=== PATIENT | female | born 1995 | race Caucasian/White ===

== ENCOUNTER 2017-07-16 20:33 | Observation (INO) | payer OTHER ==
--- NOTE | 2017-07-16 23:34 | ED ---
Abdominal Pain HPI - General Chief Complaint: Abdominal Pain Stated Complaint: appendicitis Time Seen by Provider: 07/16/17 21:29 Source: patient, RN notes reviewed Mode of arrival: ambulatory Limitations: no limitations - History of Present Illness Initial Comments: This is a 22-year-old female who had a about one week ago at [facility] who started developing abdominal pain yesterday he got worse this morning. She was seen at [facility] the workup including CAT scan wishes show evidence of a retrocecal appendicitis. Patient was transferred here as no surgeries for available at either [facility] or [place]. He currently has minimal pain she states it started in the mid abdominal area no overt fevers chills sweats at this time. No nausea reported at this time. MD Complaint: abdominal pain - Related Data Home Medications Medication Instructions Recorded Confirmed Ibuprofen [Motrin Ib] 200 mg PO Q6HR PRN 07/16/17 07/16/17 [place] Unknown Dose 1 tab PO BID PRN 07/16/17 07/16/17 Allergies Allergy/AdvReac Type Severity Reaction Status Date / Time No Known Allergies Allergy Verified 07/16/17 20:40 Review of Systems ROS Statement: Those systems with pertinent positive or pertinent negative responses have been documented in the HPI. ROS Other: All systems not noted in ROS Statement are negative. Past Medical History Past Medical History: No Reported History History of Any Multi-Drug Resistant Organisms: None Reported Past Surgical History: Section Past Psychological History: No Psychological Hx Reported Smoking Status: Current every day smoker Past Alcohol Use History: None Reported Past Drug Use History: None Reported General Exam - General Exam Comments Initial Comments: This is a well-developed well-nourished awake alert oriented 3 female Limitations: no limitations General appearance: alert, in no apparent distress Head exam: Present: atraumatic, normocephalic, normal inspection Eye exam: Present: normal appearance, PERRL, EOMI. Absent: scleral icterus, conjunctival injection, periorbital swelling ENT exam: Present: normal exam, mucous membranes moist Neck exam: Present: normal inspection. Absent: tenderness, meningismus, lymphadenopathy Respiratory exam: Present: normal lung sounds bilaterally. Absent: respiratory distress, wheezes, rales, rhonchi, stridor Cardiovascular Exam: Present: regular rate, normal rhythm, normal heart sounds. Absent: systolic murmur, diastolic murmur, rubs, gallop, clicks GI/Abdominal exam: Present: soft, tenderness (Mild tenderness palpation guarding rebound the surgical incision has Steri-Strips appears be intact with no evidence of wound dehiscence.) Extremities exam: Present: normal inspection, full ROM, normal capillary refill. Absent: tenderness, pedal edema, joint swelling, calf tenderness Back exam: Present: normal inspection Neurological exam: Present: alert, oriented X3, CN II-XII intact Psychiatric exam: Present: normal affect, normal mood Skin exam: Present: warm, dry, intact, normal color. Absent: rash Course Vital Signs 07/16/17 07/16/17 07/16/17 20:36 21:32 21:46 Temperature 98.3 F Pulse Rate 81 67 67 Respiratory 18 18 18 Rate Blood Pressure 136/78 121/65 116/57 O2 Sat by Pulse 96 97 98 Oximetry 07/16/17 23:07 Temperature Pulse Rate 67 Respiratory 18 Rate Blood Pressure 114/53 O2 Sat by Pulse 100 Oximetry Medical Decision Making - Medical Decision Making I did review the imaging as well as the materials presented from the sending facility patient did have evidence of a 19,000 white count she did receive IV antibiotics. I did discuss the case with Dr Dang. The patient will be admitted with surgery in the early a.m. Remain nothing by mouth except for a sip of water prior to admission. Disposition Clinical Impression: Appendicitis Disposition: ADMITTED IP TO THIS [facility] Condition: Stable Referrals: Gema Valencia MD [Primary Care Provider] - 1-2 days
[2017-07-16] MEDS ORDERED: ONDANSETRON 4 MG/2 ML VIAL IVP PRN (23:35)
[2017-07-16] MEDS ORDERED: NALOXONE 0.4 MG/ML 1 ML VIAL IV PRN (23:35)
[2017-07-16] MEDS: SODIUM CHLORIDE 0.9% 1,000 ML IV SCH (23:59)
[2017-07-16] MEDS: MORPHINE SULFATE 4 MG/ML SYRINGE IVP PRN (23:59)
[2017-07-17 01:12] VITALS: BMI 47.5
[2017-07-17] MEDS: PIPERACILLIN-TAZOBACTAM 3.375 GM in DEXTROSE/WATER 1 50ML.BAG IVPB SCH ×2 (04:57→15:56)
[2017-07-17] MEDS: SODIUM CHLORIDE 0.9% 1,000 ML IV SCH ×2 (06:56→17:20)
[2017-07-17] MEDS ORDERED: HEPARIN SODIUM,PORCINE 5,000 UNIT/ML 1 ML VIAL SQ STA (08:18)
--- NOTE | 2017-07-17 08:18 | P.GSHP ---
History of Present Illness H&P Date: 07/17/17 Chief Complaint: Acute appendicitis Patient transfer from [facility] yesterday evening with acute appendicitis. She said she began experiencing abdominal pain that began 2 days ago. He was initially in the periumbilical region but has moved to the right lower quadrant. White blood cell count was elevated at 19,000. She had episodes of nausea and vomiting. Some anorexia. No fevers. CAT scan showed acute appendicitis possibly retrocecal. Patient just had a performed 2 weeks ago. - Review of Systems Comment: The patient denies any acute changes in vision or hearing, no dysphagia or odynophagia, no chest pain or shortness of breath, no dysuria or hematuria, no headache, no runny nose, no rectal bleeding or melena, no unexplained weight loss Past Medical History Past Medical History: No Reported History History of Any Multi-Drug Resistant Organisms: None Reported Past Surgical History: Section Additional Past Surgical History / Comment(s): c section x4 Past Psychological History: No Psychological Hx Reported Smoking Status: Current some day smoker Past Alcohol Use History: None Reported Past Drug Use History: None Reported - Past Family History Mother Family Medical History: COPD Father Family Medical History: Diabetes Mellitus Medications and Allergies Home Medications Medication Instructions Recorded Confirmed Type Ibuprofen [Motrin Ib] 200 mg PO Q6HR PRN 07/16/17 07/16/17 History [place] Unknown Dose 1 tab PO BID PRN 07/16/17 07/16/17 History Allergies Allergy/AdvReac Type Severity Reaction Status Date / Time No Known Allergies Allergy Verified 07/17/17 08:07 Surgical - Exam Vital Signs Temp Pulse Resp BP Pulse Ox 98.3 F 81 18 136/78 96 07/16/17 20:36 07/16/17 20:36 07/16/17 20:36 07/16/17 20:36 07/16/17 20:36 Physical exam: General: Well-developed, well-nourished HEENT: Normocephalic, sclerae nonicteric Abdomen: Moderate right lower quadrant tenderness, recent scar noted Extremities: No edema Neuro: Alert and oriented Assessment and Plan (1) Appendicitis Narrative/Plan: Clinical scenario was discussed in detail with the patient and her family. We' ll plan laparoscopic possible open appendectomy at this time. Risks of bleeding , infection, abscess, ureteral injury, conversion to open, hernia were discussed. She understands and wishes to proceed. Current Visit: Yes Status: Acute Code(s): K37 - UNSPECIFIED APPENDICITIS SNOMED Code(s): 39506710
[2017-07-17] MEDS ORDERED: BUPIVACAINE (PF) 0.25% 30 ML VIAL SQ ONE ×2 (08:33)
[2017-07-17] MEDS ORDERED: IV FLUID CONTINUATION 800 ML IV ONE (08:35)
[2017-07-17] MEDS ORDERED: MIDAZOLAM 2 MG/2 ML VIAL ONE (08:36)
[2017-07-17] MEDS ORDERED: PROPOFOL 10 MG/ML 20 ML VIAL IV ONE (08:36)
[2017-07-17] MEDS ORDERED: MORPHINE SULFATE 10 MG/ML SYRINGE ONE (08:36)
[2017-07-17] MEDS ORDERED: GLYCOPYRROLATE 0.2 MG/ML 2 ML VIAL ONE (08:36)
[2017-07-17] MEDS ORDERED: ROCURONIUM BROMIDE 10 MG/ML 10 ML VIAL IV ONE (08:36)
[2017-07-17] MEDS ORDERED: LIDOCAINE 1% INJ 10MG/ML (20 ML MDV) ONE (08:36)
[2017-07-17] MEDS ORDERED: fentaNYL (PF) 50 MCG/ML 2 ML AMP ONE (08:36)
[2017-07-17] MEDS ORDERED: HYDROmorphone (PF) 1 MG/ML ONE (08:36)
[2017-07-17] MEDS ORDERED: SUCCINYLCHOLINE CHLORIDE 100 MG/5 ML SYR IV ONE (08:36)
[2017-07-17] MEDS ORDERED: NEOSTIGMINE 1 MG/ML 10 ML VIAL ONE (08:36)
[2017-07-17] MEDS ORDERED: NALOXONE 0.4 MG/ML 1 ML VIAL IV PRN (09:41)
--- NOTE | 2017-07-17 09:45 | P.OP ---
Date of Procedure: 07/17/17 Procedure(s) Performed: PREOPERATIVE DIAGNOSIS: Acute appendicitis POSTOPERATIVE DIAGNOSIS: Same PROCEDURE: Laparoscopic appendectomy SURGEON: [place] EBL: Total ANESTHESIA: General COMPLICATIONS: None OPERATIVE PROCEDURE: The patient was brought and placed on the operating table in the supine position. The patient was placed under general anesthesia. The abdomen was prepped and draped in the usual sterile fashion. A small vertical infraumbilical incision was made. The fascia was retracted anteriorly with Tg forceps. The Veress needle was advanced into the perineal cavity. The saline drop test was normal. Insufflation took place to 15 mmHg. A 5 mm trocar was then placed. The patient had some adhesions at the prior site in the suprapubic location. The patient's appendix was identified in the right upper quadrant just beneath the liver margin. An additional 5 mm trocar was placed in the right lower quadrant and a 12 mm trocar in the right upper quadrant under direct visualization. The patient's cecum was quite mobile and present again in the right upper quadrant. The appendix itself was acutely inflamed. There was no gangrenous changes or perforation seen. A window was created in the mesoappendix and the base of the appendix was divided using a linear blue load stapler. The base of the appendix was then divided using a linear array load stapler. A small area of bleeding was controlled along the staple line using 2 separate clips. No additional bleeding was seen at that point. The appendix was brought out of the peritoneal cavity through the right upper quadrant trocar site using an Endo Catch bag. The fascia at the 12 mm site was closed using a Ronny-More 0 Vicryl stitch. The skin at all 3 sites was closed using 4-0 Monocryl sutures. Steri-Strips and sterile dressings then applied. DISPOSITION: Stable to recovery room
[2017-07-17] MEDS ORDERED: diphenhydrAMINE 50 MG/ML 1 ML VIAL IVP ONE (09:59)
[2017-07-17] MEDS ORDERED: MEPERIDINE 50 MG/ML SYRINGE IVP ONE (10:03)
[2017-07-17] MEDS: MORPHINE SULFATE 4 MG/ML SYRINGE IVP PRN ×4 (13:00→22:39)
[2017-07-17] MEDS ORDERED: ACETAMINOPHEN IV (For NPO) 1,000 MG in EMPTY BAG 1 BAG IVPB ONE (17:15)
[2017-07-17] MEDS: HEPARIN SODIUM,PORCINE 5,000 UNIT/ML 1 ML VIAL SQ SCH (17:21)
[2017-07-17] MEDS: DOCUSATE 100 MG CAP PO SCH (22:40)
[2017-07-18] MEDS: HEPARIN SODIUM,PORCINE 5,000 UNIT/ML 1 ML VIAL SQ SCH ×4 (00:13→23:51)
[2017-07-18] MEDS: PIPERACILLIN-TAZOBACTAM 3.375 GM in DEXTROSE/WATER 1 50ML.BAG IVPB SCH ×4 (00:14→23:51)
[2017-07-18] MEDS: SODIUM CHLORIDE 0.9% 1,000 ML IV SCH ×4 (00:15→23:51)
[2017-07-18] MEDS: MORPHINE SULFATE 4 MG/ML SYRINGE IVP PRN ×3 (02:02→12:27)
[2017-07-18] MEDS: HYDROcodone/APAP 5-325MG 1 EACH TAB PO PRN ×4 (07:58→21:47)
[2017-07-18] MEDS: DOCUSATE 100 MG CAP PO SCH ×2 (07:58→21:31)
[2017-07-18 11:05] LABS: Basophils # (A) 0.1 k/uL (0-0.2); Basophils % (A) 1 %; Eosinophils # (A) 0.2 k/uL (0-0.7); Eosinophils % (A) 2 %; HCT 33.9 % (34.0-46.0); HGB 10.9 gm/dL (11.4-16.0); Lymphocytes # (A) 3.4 k/uL (1.0-4.8); Lymphocytes % (A) 33 %; MCH 25.8 pg (25.0-35.0); MCHC 32.1 g/dL (31.0-37.0); MCV 80.5 fL (80.0-100.0); Mean Platelet Volume 6.5; Monocytes # (A) 0.4 k/uL (0-1.0); Monocytes % (A) 4 %; Neutrophils # (A) 6.2 k/uL (1.3-7.7); Neutrophils % (A) 60 %; Platelet Count 494 k/uL (150-450); RBC 4.21 m/uL (3.80-5.40); RDW 14.1 % (11.5-15.5); WBC 10.4 k/uL (3.8-10.6)
--- NOTE | 2017-07-18 13:04 | P.PN ---
<Neli Dunhamne M - Last Filed: 07/18/17 12:56> Subjective Progress Note Date: 07/18/17 22-year-old female sitting up on the edge of the bed. Patient reports having "unbearable right upper quadrant pain radiates to the back hurts to take a deep breath. Patient report pain medication has not taken control of the pain the pain persist. Patient reports a sensation of nausea. Patient states she did ambulate in the hallway once this morning did pass gas no stool surgical incision sites dry Postop July 17 laparoscopic appendectomy for acute appendicitis Objective - Vital Signs Vital signs: Vital Signs Temp 98.2 F 07/18/17 11:09 Pulse 78 07/18/17 11:09 Resp 18 07/18/17 11:09 BP 108/63 07/18/17 11:09 Pulse Ox 98 07/18/17 11:09 Intake & Output 07/17/17 07/18/17 07/18/17 18:59 06:59 18:59 Intake Total 840 600 200 Output Total 725 Balance 115 600 200 Intake: IV 600 Oral 240 600 200 Output: Urine 720 Estimated Blood Loss 5 Other: # Voids 1 1 - Exam Physical exam 22-year-old female sitting up on the edge the bed reports nausea sensation no appetite with persistent right upper quadrant abdominal pain radiating to the back Lungs adequate air movement on room air sats are 98% no cough noted Heart S1-S2 audible regular Abdomen surgical incision sites dressings dry ice pack in place surgical tenderness appropriate states urinating no difficulty states passing gas no stool nausea sensation no emesis Extremities no edema - Labs CBC & Chem 7: 07/18/17 10:41 Labs: Abnormal Lab Results - Last 24 Hours (Table) 07/18/17 Range/Units 10:41 Hgb 10.9 L (11.4-16.0) gm/dL Hct 33.9 L (34.0-46.0) % Plt Count 494 H (150-450) k/uL Assessment and Plan Assessment: Impression Present on admission right upper quadrant pain suspect due to acute appendicitis Postop laparoscopic appendectomy Present on admission leukocytosis suspect reactive History of 4 recent likely performed 2 weeks prior Morbid obesity BMI 47 Plan Continue postop surgical care Advance diet as tolerated Encourage ambulation Repeat labs in the morning Pain control Further recommendations pending DVT and GI prophylaxis Will start Toradol 30 IV every 6 The above impression and plan of care have been discussed and directed by signing physician. Kelsie Dunham nurse practitioner acting as scribe for signing physician. <Eugeino Dang - Last Filed: 07/18/17 20:30> Objective - Vital Signs Vital signs: Vital Signs Temp 98.0 F 07/18/17 20:19 Pulse 65 07/18/17 20:19 Resp 18 07/18/17 20:19 BP 108/67 07/18/17 20:19 Pulse Ox 91 L 07/18/17 20:19 Intake & Output 07/18/17 07/18/17 07/19/17 06:59 18:59 06:59 Intake Total 600 760 Balance 600 760 Intake: Oral 600 760 Other: # Voids 1 - Labs CBC & Chem 7: 07/18/17 10:41 Labs: Abnormal Lab Results - Last 24 Hours (Table) 07/18/17 Range/Units 10:41 Hgb 10.9 L (11.4-16.0) gm/dL Hct 33.9 L (34.0-46.0) % Plt Count 494 H (150-450) k/uL Assessment and Plan Assessment: As above. Patient's pain is improved after starting Toradol. She thinks she wants to go home tomorrow morning. She is tolerating diet at this time. White blood cell count normal now. We'll repeat labs tomorrow. Anticipate probable discharge tomorrow. (1) Appendicitis Current Visit: Yes Status: Acute Code(s): K37 - UNSPECIFIED APPENDICITIS SNOMED Code(s): 58891840
[2017-07-18] MEDS ORDERED: traMADol 50 MG TAB PO PRN (13:07)
[2017-07-18] MEDS: KETOROLAC 30 MG/ML 1 ML VIAL IVP SCH ×3 (13:34→23:51)
[2017-07-18] MEDS ORDERED: MORPHINE ORAL SOLN 10 MG/5 ML CUP PO PRN (15:42)
[2017-07-19] MEDS: KETOROLAC 30 MG/ML 1 ML VIAL IVP SCH ×2 (05:46→12:16)
[2017-07-19] MEDS: HYDROcodone/APAP 5-325MG 1 EACH TAB PO PRN ×2 (06:19→12:17)
[2017-07-19 07:34] LABS: ALT 32 U/L (9-52); AST 25 U/L (14-36); Albumin 3.1 g/dL (3.5-5.0); Alkaline Phosphatase 111 U/L (38-126); Anion Gap 11 mmol/L; Blood Urea Nitrogen 11 mg/dL (7-17); Calcium 9.1 mg/dL (8.4-10.2); Carbon Dioxide 20 mmol/L (22-30); Chloride 111 mmol/L (98-107); Glucose 75 mg/dL (74-99); Sodium 142 mmol/L (137-145); Total Bilirubin 0.2 mg/dL (0.2-1.3)
[2017-07-19 07:53] LABS: Basophils % (A) 0 %; Eosinophils # (A) 0.3 k/uL (0-0.7); Eosinophils % (A) 3 %; HCT 30.8 % (34.0-46.0); HGB 9.9 gm/dL (11.4-16.0); Hypochromasia Slight; Lymphocytes % (A) 44 %; MCH 26.6 pg (25.0-35.0); MCHC 32.2 g/dL (31.0-37.0); MCV 82.6 fL (80.0-100.0); Mean Platelet Volume 6.5; Monocytes # (A) 0.4 k/uL (0-1.0); Monocytes % (A) 4 %; Neutrophils # (A) 4.2 k/uL (1.3-7.7); Neutrophils % (A) 47 %; Platelet Count 410 k/uL (150-450); RBC 3.73 m/uL (3.80-5.40); RDW 14.1 % (11.5-15.5)
[2017-07-19] MEDS: PIPERACILLIN-TAZOBACTAM 3.375 GM in DEXTROSE/WATER 1 50ML.BAG IVPB SCH (08:47)
[2017-07-19] MEDS: HEPARIN SODIUM,PORCINE 5,000 UNIT/ML 1 ML VIAL SQ SCH (09:15)
[2017-07-19] MEDS: DOCUSATE 100 MG CAP PO SCH (09:15)
--- NOTE | 2017-07-19 11:09 | P.DS ---
Providers Date of admission: 07/16/17 23:35 22 year old female presented to er for eval right upper abdominal pain seen by dr craney . on july 17 under went Laparoscopic appendectomy for acute appendicitis no post op events felt to be stable for discharge on july 19 repeat wbc 9 hgb 9.9 Impression Present on admission right upper quadrant pain suspect due to acute appendicitis Postop laparoscopic appendectomy Present on admission leukocytosis suspect reactive History of 4 recent likely performed 2 weeks prior Morbid obesity BMI 47 The above impression and plan of care have been discussed and directed by signing physician. Kelsie Dunham nurse practitioner acting as scribe for signing physician. Attending physician: Eugenio Dang Primary care physician: Gema Valencia Patient Condition at Discharge: Stable Plan - Discharge Summary New Discharge Prescriptions: New Hydrocodone/Acetaminophen [[place] 5-325] 1 - 2 each PO Q4HR PRN #14 tab PRN Reason: pain No Action Ibuprofen [Motrin Ib] 200 mg PO Q6HR PRN PRN Reason: Pain [place] Unknown Dose 1 tab PO BID PRN PRN Reason: Pain Discharge Medication List Ibuprofen [Motrin Ib] 200 mg PO Q6HR PRN 07/16/17 [History] [place] Unknown Dose 1 tab PO BID PRN 07/16/17 [History] Hydrocodone/Acetaminophen [[place] 5-325] 1 - 2 each PO Q4HR PRN #14 tab 07/17/17 [Rx] Follow up Appointment(s)/Referral(s): Eugenio Dang MD [Medical Doctor] - 1 Week Gema Valencia MD [Primary Care Provider] - 1-2 days Patient Instructions/Handouts: How to Use an Incentive Spirometer (GEN), Laparoscopic Appendectomy (DC) Activity/Diet/Wound Care/Special Instructions: No heavy lifting, no driving, not tub baths, no housework. Limit steps. May shower. Leave the steri strips in place, they will fall off on their own. Call Dr Dang if you develop a fever, increase in pain, drainage from your incision sites, or if you have any other questions or concern. Discharge Disposition: HOME SELF-CARE
[2017-07-19 13:26] VITALS: BP 139/83; PULSE 62; RESP 16; TEMP 98
== END 2017-07-19 13:26 | disposition home or self-care (01) ==
LOC: EC 20:33 → 6PED 23:35
PROVIDERS: ADMIT Surgery; ATTEND Surgery
DX: O99.63 Diseases of the digestive system complicating the puerperium (principal); K35.80 Unspecified acute appendicitis; R10.11 Right upper quadrant pain; O99.335 Smoking (tobacco) complicating the puerperium; F17.200 Nicotine dependence, unspecified, uncomplicated; O99.215 Obesity complicating the puerperium; E66.01 Morbid (severe) obesity due to excess calories; G89.18 Other acute postprocedural pain; Z68.42 Body mass index [BMI] 45.0-49.9, adult; Z82.5 Family history of asthma and other chronic lower respiratory diseases; Z83.3 Family history of diabetes mellitus
CPT/HCPCS: 44970; 99284; 96374; 88304; 80053; 85025 ×2; G0378 ×4; J2250; J2270 ×4; J1200; J1644 ×3; J2710; J2175; J2405; J2001; J3010; J1885 ×2; J1170; J2543 ×3; J0131; J0330; J2704

== ENCOUNTER 2021-12-22 16:28 | Emergency (ER) | payer OTHER ==
[2021-12-22 16:35] VITALS: RESP 20; TEMP 98.1
[2021-12-22] MEDS ORDERED: SODIUM CHLORIDE 0.9% 1,000 ML IV STA (16:46)
[2021-12-22] MEDS ORDERED: ACETAMINOPHEN TAB 500 MG TAB PO STA (17:06)
[2021-12-22 17:42] LABS: ALT 40 U/L (4-34); AST 35 U/L (14-36); African American GFR (CKD) >90 (>60 ml/min/1.73 sqM); Albumin 4.3 g/dL (3.5-5.0); Alkaline Phosphatase 165 U/L (38-126); Anion Gap 13 mmol/L; Blood Urea Nitrogen 13 mg/dL (7-17); Calcium 9.8 mg/dL (8.4-10.2); Carbon Dioxide 24 mmol/L (22-30); Chloride 103 mmol/L (98-107); Glucose 98 mg/dL (74-99); Non-African American GFR(CKD) >90 (>60 ml/min/1.73 sqM); Potassium 4.5 mmol/L (3.5-5.1); Sodium 140 mmol/L (137-145); Total Bilirubin 0.2 mg/dL (0.2-1.3); Total Protein 7.7 g/dL (6.3-8.2)
[2021-12-22 17:44] LABS: Anisocytosis Slight; Basophils % (A) 0 %; Eosinophils # (A) 0.3 k/uL (0-0.7); Eosinophils % (A) 2 %; HCT 32.3 % (34.0-46.0); HGB 10.3 gm/dL (11.4-16.0); Hypochromasia Slight; Lymphocytes # (A) 4.3 k/uL (1.0-4.8); Lymphocytes % (A) 25 %; MCH 25.7 pg (25.0-35.0); MCHC 31.7 g/dL (31.0-37.0); Mean Platelet Volume 6.8; Monocytes # (A) 0.6 k/uL (0-1.0); Monocytes % (A) 3 %; Neutrophils # (A) 11.5 k/uL (1.3-7.7); Neutrophils % (A) 67 %; Platelet Count 929 k/uL (150-450); RBC 3.99 m/uL (3.80-5.40); RDW 16.3 % (11.5-15.5); WBC 17.1 k/uL (3.8-10.6)
[2021-12-22 17:59] LABS: Appearance,Urine Clear (Clear); Bacteria,Urine Rare /hpf; Bilirubin,Urine Negative (Negative); Blood,Urine Large (Negative); Color,Urine Light Yellow; Glucose,Urine (UA) Negative (Negative); Ketones,Urine Negative (Negative); Leukocyte Esterase,Urine Large (Negative); Mucus,Urine Rare /hpf; Nitrite,Urine Negative (Negative); PH, Urine 5.5 (5.0-8.0); Protein,Urine Negative (Negative); RBC,Urine 15 /hpf (0-5); Specific Gravity,Urine 1.015 (1.001-1.035); Squamous Epithelial Cell,Urine 1 /hpf (0-4); Urobilinogen,Urine <2.0 mg/dL (<2.0); WBC,Urine 34 /hpf (0-5)
[2021-12-22] MEDS ORDERED: DOXYCYCLINE 100 MG CAP PO STA (18:35)
--- NOTE | 2021-12-22 18:54 | ED ---
Fever HPI - General Chief Complaint: Vaginal Bleeding Stated Complaint: Vaginal bleeding, Fever Time Seen by Provider: 12/22/21 16:36 Source: patient Mode of arrival: ambulatory Limitations: no limitations - History of Present Illness Initial Comments: Patient is a A1 female who presents to the emergency department with a chief complaint of fever 5 days. Patient had an at-home vaginal delivery 11 days ago after 5 previous C-sections. Patient states she was in labor for 3 days. States during delivery she developed a third degree vaginal tear but otherwise there were no complications. Baby is healthy and doing well. Patient states that up until today she has had a fever, max temp 101.4F. Patient denies any fever today. She has not taken any antipyretic medication today. She reports a headache but otherwise feels well. Does admit to vaginal bleeding which began today. Has saturated 2 pads. She has been seeing her primary care provider regarding the fever. She was put on Augmentin 2 days ago has been taking as directed. Patient had outpatient ultrasound today per her primary care provider which showed small echogenic debris in the endometrial cavity approximately 9-11 mm, likely representing retained products of conception. She was sent to the emergency department for further evaluation. Denies neck pain, shortness of breath, upper respiratory symptoms, chest pain, abdominal pain, nausea, vomiting, and blood in urine. Does admit that it fischer her vagina to urinate due to the tear but does not feel that this there is burning with urination due to urinary tract infection. Denies increased urinary frequency/urgency. - Related Data Home Medications Medication Instructions Recorded Confirmed Ibuprofen [Motrin Ib] 800 mg PO Q6HR PRN 07/16/17 12/22/21 Acetaminophen Tab [Tylenol Tab] 1,000 mg PO Q6HR PRN 12/22/21 12/22/21 Amoxic-Pot Clav 875-125Mg 1 tab PO Q12HR 12/22/21 12/22/21 [Augmentin 875-125] Previous Rx's Medication Instructions Recorded clindamycin HCL 300 mg PO QID 10 Days #40 capsule 12/22/21 Allergies Allergy/AdvReac Type Severity Reaction Status Date / Time No Known Allergies Allergy Verified 12/22/21 17:20 Review of Systems ROS Statement: Those systems with pertinent positive or pertinent negative responses have been documented in the HPI. ROS Other: All systems not noted in ROS Statement are negative. Past Medical History Past Medical History: No Reported History History of Any Multi-Drug Resistant Organisms: None Reported Past Surgical History: Section Additional Past Surgical History / Comment(s): c section x4 Past Psychological History: No Psychological Hx Reported Smoking Status: Current every day smoker Past Alcohol Use History: None Reported Past Drug Use History: None Reported - Past Family History Mother Family Medical History: COPD Father Family Medical History: Diabetes Mellitus General Exam Limitations: no limitations General appearance: alert, in no apparent distress Head exam: Present: atraumatic, normocephalic, normal inspection Respiratory exam: Present: normal lung sounds bilaterally. Absent: respiratory distress, wheezes, rales, rhonchi, stridor Cardiovascular Exam: Present: regular rate, normal rhythm, normal heart sounds. Absent: systolic murmur, diastolic murmur, rubs, gallop, clicks GI/Abdominal exam: Present: soft, normal bowel sounds. Absent: distended, tenderness, guarding, rebound, rigid External exam: Present: normal external exam. Absent: erythema, swelling, lesions, lacerations, ecchymosis Neurological exam: Present: alert, oriented X3, CN II-XII intact Psychiatric exam: Present: normal affect, normal mood Course Vital Signs 12/22/21 12/22/21 16:32 19:05 Temperature 98.1 F 98.1 F Pulse Rate 111 H 95 Respiratory 20 20 Rate Blood Pressure 120/73 118/69 O2 Sat by Pulse 96 96 Oximetry Medical Decision Making - Medical Decision Making This is a 26-year-old female who presents for evaluation of fever 11 days after at home vaginal delivery. Thorough history and examination were performed. Patient is well-appearing. Denies fever today. She is afebrile in the emergency department. There is no vaginal tear visualized on external exam. There is no swelling, erythema, discharge, or other abnormalities. The abdomen is soft and nontender. X-ray studies obtained. Patient has elevated white count of 17.1. Hemoglobin is low at 10.3, consistent with patient's last visit at 10.9. Urinalysis reveals possible infection with 34 WBCs, 15 RBCs, and rare bacteria. Case discussed with opinion polls survey worker Dr. Chen. We discussed outpatient ultrasound in detail. Per Dr. Chen there is no concern for retained products of conception due to small size of debris. This is likely a blood clot in the uterus. She recommends outpatient clindamycin prescription for possible urinary tract infection or other genitourinary infection that may have occurred during delivery. This was discussed with patient in detail. She will continue Augmentin. She wiill monitor symptoms and follow up with her primary caregiver a closely. She'll return to the emergency department if she experiences new, concerning, or worsening symptoms. Patient verbalizes understanding and is agreeable to this plan. Dr. Estrada is my attending - Lab Data Result diagrams: 12/22/21 16:58 12/22/21 16:58 Lab Results 12/22/21 12/22/21 12/22/21 Range/Units 16:47 16:58 16:58 WBC 17.1 H (3.8-10.6) k/uL RBC 3.99 (3.80-5.40) m/uL Hgb 10.3 L (11.4-16.0) gm/dL Hct 32.3 L (34.0-46.0) % MCV 81.0 (80.0-100.0) fL MCH 25.7 (25.0-35.0) pg MCHC 31.7 (31.0-37.0) g/dL RDW 16.3 H (11.5-15.5) % Plt Count 929 H (150-450) k/uL MPV 6.8 Neutrophils % 67 % Lymphocytes % 25 % Monocytes % 3 % Eosinophils % 2 % Basophils % 0 % Neutrophils # 11.5 H (1.3-7.7) k/uL Lymphocytes # 4.3 (1.0-4.8) k/uL Monocytes # 0.6 (0-1.0) k/uL Eosinophils # 0.3 (0-0.7) k/uL Basophils # 0.0 (0-0.2) k/uL Hypochromasia Slight Anisocytosis Slight Sodium 140 (137-145) mmol/L Potassium 4.5 (3.5-5.1) mmol/L Chloride 103 (98-107) mmol/L Carbon Dioxide 24 (22-30) mmol/L Anion Gap 13 mmol/L BUN 13 (7-17) mg/dL Creatinine 0.66 (0.52-1.04) mg/dL Est GFR (CKD-EPI)AfAm >90 (>60 ml/min/1.73 sqM) Est GFR (CKD-EPI)NonAf >90 (>60 ml/min/1.73 sqM) Glucose 98 (74-99) mg/dL Calcium 9.8 (8.4-10.2) mg/dL Total Bilirubin 0.2 (0.2-1.3) mg/dL AST 35 (14-36) U/L ALT 40 H (4-34) U/L Alkaline Phosphatase 165 H (38-126) U/L Total Protein 7.7 (6.3-8.2) g/dL Albumin 4.3 (3.5-5.0) g/dL Urine Color Light Yellow Urine Appearance Clear (Clear) Urine pH 5.5 (5.0-8.0) Ur Specific [place] 1.015 (1.001-1.035) Urine Protein Negative (Negative) Urine Glucose (UA) Negative (Negative) Urine Ketones Negative (Negative) Urine Blood Large H (Negative) Urine Nitrite Negative (Negative) Urine Bilirubin Negative (Negative) Urine Urobilinogen <2.0 (<2.0) mg/dL Ur Leukocyte Esterase Large H (Negative) Urine RBC 15 H (0-5) /hpf Urine WBC 34 H (0-5) /hpf Ur Squamous Epith Cells 1 (0-4) /hpf Urine Bacteria Rare H (None) /hpf Urine Mucus Rare H (None) /hpf Blood Type Blood Type Recheck Bld Type Recheck Status Antibody Screen Spec Expiration Date 12/22/21 Range/Units 17:39 WBC (3.8-10.6) k/uL RBC (3.80-5.40) m/uL Hgb (11.4-16.0) gm/dL Hct (34.0-46.0) % MCV (80.0-100.0) fL MCH (25.0-35.0) pg MCHC (31.0-37.0) g/dL RDW (11.5-15.5) % Plt Count (150-450) k/uL MPV Neutrophils % % Lymphocytes % % Monocytes % % Eosinophils % % Basophils % % Neutrophils # (1.3-7.7) k/uL Lymphocytes # (1.0-4.8) k/uL Monocytes # (0-1.0) k/uL Eosinophils # (0-0.7) k/uL Basophils # (0-0.2) k/uL Hypochromasia Anisocytosis Sodium (137-145) mmol/L Potassium (3.5-5.1) mmol/L Chloride (98-107) mmol/L Carbon Dioxide (22-30) mmol/L Anion Gap mmol/L BUN (7-17) mg/dL Creatinine (0.52-1.04) mg/dL Est GFR (CKD-EPI)AfAm (>60 ml/min/1.73 sqM) Est GFR (CKD-EPI)NonAf (>60 ml/min/1.73 sqM) Glucose (74-99) mg/dL Calcium (8.4-10.2) mg/dL Total Bilirubin (0.2-1.3) mg/dL AST (14-36) U/L ALT (4-34) U/L Alkaline Phosphatase (38-126) U/L Total Protein (6.3-8.2) g/dL Albumin (3.5-5.0) g/dL Urine Color Urine Appearance (Clear) Urine pH (5.0-8.0) Ur Specific [place] (1.001-1.035) Urine Protein (Negative) Urine Glucose (UA) (Negative) Urine Ketones (Negative) Urine Blood (Negative) Urine Nitrite (Negative) Urine Bilirubin (Negative) Urine Urobilinogen (<2.0) mg/dL Ur Leukocyte Esterase (Negative) Urine RBC (0-5) /hpf Urine WBC (0-5) /hpf Ur Squamous Epith Cells (0-4) /hpf Urine Bacteria (None) /hpf Urine Mucus (None) /hpf Blood Type A Positive Blood Type Recheck A Pos Bld Type Recheck Status No Antibody Screen NEGATIVE Spec Expiration Date 12/25/20212338 Disposition Clinical Impression: Leukocytosis, Tachycardia, Urinary tract infection, Vaginal bleeding, Vaginal after delivery Disposition: HOME SELF-CARE Condition: Good Instructions (If sedation given, give patient instructions): Urinary Tract Infection in Women (ED), Fever in Adults (ED) Additional Instructions: Take antibiotic as directed. Continue to take Augmentin. Follow-up with primary care provider closely regarding symptoms. Return to the emergency department if you experience new, concerning, or worsening symptoms. Prescriptions: clindamycin HCL 300 mg PO QID 10 Days #40 capsule Is patient prescribed a controlled substance at d/c from ED?: No Referrals: Van Clark MD [Primary Care Provider] - 1-2 days Time of Disposition: 18:54
[2021-12-22 19:08] VITALS: BP 118/69; PULSE 95
== END 2021-12-22 19:05 | disposition home or self-care (01) ==
LOC: EC 16:28
DX: O86.20 Urinary tract infection following delivery, unspecified (principal); O99.43 Diseases of the circulatory system complicating the puerperium; O72.2 Delayed and secondary postpartum hemorrhage; N39.0 Urinary tract infection, site not specified; O99.13 Other diseases of the blood and blood-forming organs and certain disorders involving the immune mechanism complicating the puerperium; D72.829 Elevated white blood cell count, unspecified; F17.200 Nicotine dependence, unspecified, uncomplicated
CPT/HCPCS: 36415; 80053; 81001; 85025; 86850; 86900; 86901; 87040; 87086; 96360; 99284